=== PATIENT | female | born 1960 | race Caucasian/White ===

== ENCOUNTER 2017-10-14 07:28 | Outpatient (CLI) | payer BC | END 2017-10-14 07:29 | disposition home or self-care (01) | LOC: BICMAMMO 07:28 | PROVIDERS: ATTEND Obstetrics & Gynecology | DX: Z12.31 Encounter for screening mammogram for malignant neoplasm of breast (principal) | CPT/HCPCS: 77063; 77067; G0202 ==

== ENCOUNTER 2017-11-03 11:03 | Outpatient (CLI) | payer BC | END 2017-11-03 11:04 | disposition home or self-care (01) | LOC: BICMAMMO 11:03 | PROVIDERS: ATTEND Obstetrics & Gynecology | DX: R92.2 Inconclusive mammogram (principal) | CPT/HCPCS: 77066; G0279 ==

== ENCOUNTER 2020-11-15 14:38 | Outpatient (CLI) | payer BC ==
--- NOTE | 2020-11-15 16:18 | MRI ---
EXAM: MRI of the breasts without and with contrast HISTORY: Genetic susceptibility to breast cancer. COMPARISON: Mammogram 04/30/2020, 03/17/2019, 10/14/2017 TECHNIQUE: Multiplanar multisequence MR images were obtained of the breasts without and with IV contr ast. 3-D MIP reformats and contrast enhancement curves were generated on a [employer] workstation. FINDINGS: Scattered fibroglandular breast parenchyma is seen. Minimal background parenchymal enhancement is seen. There is a well-circumscribed 5 mm mass in the medial aspect of the right breast that demonstrates hi gh T2 signal and likely represents an intramammary lymph node. There is a 5 mm well-circumscribed mass in the outer aspect of the left breast that also demonstrates high T2 signal and likely represen ts an intramammary lymph node. Both of these correspond to stable well-circumscribed masses on the prior mammograms. No suspicious mass or abnormal enhancement is seen within either breast. No axillary adenopathy is seen. No internal mammary lymph nodes are identified. The visualized liver is unremarkable. The visualized bones are unremarkable. IMPRESSION: BI-RADS Category 2-benign findings. Annual screening mammography is recommended.
== END 2020-11-15 14:39 | disposition home or self-care (01) ==
LOC: BICMRI 14:38
PROVIDERS: ATTEND Student in an Organized Health Care Education/Training Program
DX: Z15.01 Genetic susceptibility to malignant neoplasm of breast (principal)
CPT/HCPCS: 82565; A9577; C8908

== ENCOUNTER 2021-04-01 11:32 | Outpatient (CLI) | payer BC | END 2021-04-01 11:33 | disposition home or self-care (01) | LOC: BICRAD 11:32 | PROVIDERS: ATTEND Internal Medicine | DX: R05 Cough (principal) | CPT/HCPCS: 71046 ==

== ENCOUNTER 2022-06-30 11:19 | Outpatient (CLI) | payer BC | END 2022-06-30 11:20 | disposition home or self-care (01) | LOC: BICRAD 11:19 | PROVIDERS: ATTEND Internal Medicine | DX: R05.3 Chronic cough (principal) | CPT/HCPCS: 71046 ==